=== PATIENT | male | born 1950 | race Caucasian/White ===

== ENCOUNTER → 2019-01-15 | Outpatient (REF) | payer MEDICARE ==
[2019-01-15 10:57] LABS: IMMATURE GRANULOCYTES 0.6 % (0.0-5.0); MEAN CORPUSCULAR HGB 33.8 pG CALC (26.0-32.0); MEAN CORPUSCULAR HGB CONC 33.8 g/L CALC (32.0-36.0); NEUT# 2.39 thou/uL (1.82-7.42); RED BLOOD COUNT 3.11 mill/uL (4.70-6.10)
[2019-01-15 11:05] LABS: ALKALINE PHOSPHATASE 121 u/l (38-126); ANION GAP 9 (6-22 (CALC)); BILIRUBIN, TOTAL 1.5 mg/dL (0.0-1.4); BUN 9 mg/dL (8-23); BUN/CREATININE RATIO 11 (12-20 (CALC)); CALCULATED LDLCHOLESTEROL 81 mg/dL (62-129 (CALC)); CARBON DIOXIDE 25 mmol/l (22-30); CHLORIDE 108 mmol/l (95-108); CHOLESTEROL HDL RATIO 3.2 (<4.4 (CALC)); CREATININE 0.9 mg/dL (0.7-1.3); GFR > 60 ML/MIN (>=60 (CALC)); GFR FOR AFR.AMER. > 60 ML/MIN (>=60 (CALC)); HDL CHOLESTEROL 44 mg/dL (>=40); POTASSIUM 4.1 mmol/l (3.5-5.1); SGOT/AST 44 u/l (19-48); SODIUM 138 mmol/l (137-146); TOTAL CHOLESTEROL 140 mg/dl (0-199); TOTAL PROTEIN 6.4 g/dL (6.3-8.2); TOTAL TRIGLYCERIDES 74 mg/dl (30-149); VLDL CHOLESTROL 15 mg/dl (4-45 (CALC))
[2019-01-15 11:08] LABS: ALBUMIN 2.7 g/dL (3.2-5.0)
[2019-01-15 11:22] LABS: HEMATOCRIT 31.1 % (39.0-50.0); HEMOGLOBIN 10.5 g/dl (14.0-18.0)
== END | disposition home or self-care (01) ==
LOC: LABSPEC 09:16
PROVIDERS: ATTEND Internal Medicine
DX: I69.30 Unspecified sequelae of cerebral infarction (principal); K74.60 Unspecified cirrhosis of liver; K76.6 Portal hypertension; Z86.73 Personal history of transient ischemic attack (TIA), and cerebral infarction without residual deficits; I10 Essential (primary) hypertension; Z79.899 Other long term (current) drug therapy

== ENCOUNTER → 2019-01-19 | Outpatient (REF) | payer MEDICARE | END | disposition home or self-care (01) | LOC: LABSPEC 13:11 | PROVIDERS: ATTEND Internal Medicine | DX: I69.30 Unspecified sequelae of cerebral infarction (principal); K74.60 Unspecified cirrhosis of liver; K76.6 Portal hypertension; Z86.73 Personal history of transient ischemic attack (TIA), and cerebral infarction without residual deficits ==